=== PATIENT | female | born 1945 | race Caucasian/White ===

== ENCOUNTER 2019-03-23 05:47 | Day surgery (SDC) | payer MEDICARE, BC ==
[~2019-03-23] VITALS: Ht 162.6 cm; Wt 64.2 kg
[~2019-03-23 05:47] MED LIST: AMLO2.5T2 PO; DULO60CA7 PO; FLUT1DIS IH; LACT1CAP43 PO; SIMV10TA PO; VITAMIN D
[2019-03-23] MEDS ORDERED: LACTATED RINGERS 1,000 ML IV SCH (06:25)
[2019-03-23 06:28] VITALS: BP 160/99
[2019-03-23] MEDS ORDERED: LIDOCAINE 1%-EPI 1:100K, 20ML ONE (07:08)
[2019-03-23] MEDS ORDERED: EPINEPHRINE TOPICAL SOLN 1 MG/ML, 30ML ONE (07:08)
[2019-03-23] MEDS ORDERED: BACITRACIN OINT 500U/GM, 15 GM ONE (07:08)
[2019-03-23] MEDS ORDERED: OXYMETAZOLINE NASAL SPRAY 0.05%, 15ML ONE (07:08)
[2019-03-23] MEDS ORDERED: FLUORESCEIN SODIUM 500 MG/5 ML ONE (07:08)
[2019-03-23] MEDS ORDERED: FENTANYL PF 100 MCG/2ML ONE (07:33)
[2019-03-23] MEDS ORDERED: ROCURONIUM 10MG/ML,5ML ONE (08:04)
[2019-03-23] MEDS ORDERED: PROPOFOL 10 MG/ML, 20ML ONE (08:04)
[2019-03-23] MEDS ORDERED: ONDANSETRON 2MG/ML, 2ML ONE (08:04)
[2019-03-23] MEDS ORDERED: CEFAZOLIN 1,000 MG ONE (08:04)
[2019-03-23] MEDS ORDERED: SUCCINYLCHOLINE 20 MG/ML, 10ML ONE (08:04)
[2019-03-23] MEDS ORDERED: GLYCOPYRROLATE 0.2MG/1ML, 5ML ONE (08:04)
[2019-03-23] MEDS ORDERED: NEOSTIGMINE 1 MG/ML, 10ML ONE (08:04)
[2019-03-23] MEDS ORDERED: DEXAMETHASONE 4 MG/ML, 1ML ONE (08:04)
[2019-03-23] MEDS ORDERED: EPHEDRINE 50 MG/ML, 1ML ONE (08:17)
[2019-03-23] MEDS ORDERED: LORazepam 2 MG/ML, 1ML IVPush PRN (08:30)
[2019-03-23] MEDS ORDERED: ONDANSETRON 2MG/ML, 2ML IV PRN (08:30)
[2019-03-23] MEDS ORDERED: HYDROmorphone 2 MG/ML, 1ML IVPush PRN (08:30)
[2019-03-23] MEDS ORDERED: ONDANSETRON ODT 8 MG PO PRN (08:30)
[2019-03-23] MEDS ORDERED: FENTANYL PF 100 MCG/2ML IV PRN (08:30)
[2019-03-23] MEDS ORDERED: OXYcodone 5 MG/5 ML ORAL.SOL UDC PO PRN (08:30)
[2019-03-23] MEDS ORDERED: ACETAMINOPHEN 325 MG TABLET PO PRN (08:30)
[2019-03-23] MEDS ORDERED: PROMETHAZINE 25 MG SUPP PR PRN (08:30)
[2019-03-23] MEDS ORDERED: PROMETHAZINE 25 MG/ML, 1ML IV PRN (08:30)
== END 2019-03-23 11:45 | disposition home or self-care (01) ==
LOC: OUT 05:47
PROVIDERS: ATTEND Otolaryngology
DX: J01.00 Acute maxillary sinusitis, unspecified (principal); J32.0 Chronic maxillary sinusitis; I10 Essential (primary) hypertension; E78.5 Hyperlipidemia, unspecified; J45.909 Unspecified asthma, uncomplicated; F41.9 Anxiety disorder, unspecified; Z72.89 Other problems related to lifestyle; Z79.899 Other long term (current) drug therapy; Z90.710 Acquired absence of both cervix and uterus; Z82.3 Family history of stroke; Z82.49 Family history of ischemic heart disease and other diseases of the circulatory system
CPT/HCPCS: 31255; 31256; 88304; 88311; J0690; J1100; J2405; J2704; J2710; J3010; J3490; J7120; J0330